=== PATIENT | male | born 1980 | race Caucasian/White ===

== ENCOUNTER 2017-02-03 20:04 | Emergency (ER) | payer OTHER ==
[2017-02-03 21:39] LABS: Hematocrit 44.4 % (35.5-45.6); Hemoglobin 15.1 gm/dl (11.8-15.2); Mean Corpuscular HGB Conc 34 % (32-34); Mean Corpuscular Hemoglobin 34 pg (28-32); Mean Corpuscular Volume 99 fl (84-94); Platelet Count 167 K/mm3 (140-440); Red Blood Count 4.49 M/mm3 (3.65-5.03); Red Cell Distribution Width 13.9 % (13.2-15.2); White Blood Count 11.3 K/mm3 (4.5-11.0)
[2017-02-03 21:57] LABS: Alanine Aminotransferase 48 units/L (7-56); Albumin 5.2 g/dL (3.9-5); Albumin/Globulin Ratio 1.7 %; Alkaline Phosphatase 62 units/L (35-129); Anion Gap 22 mmol/L; BUN/Creatinine Ratio 14; Blood Urea Nitrogen 10 mg/dL (9-20); Calcium 10.1 mg/dL (8.4-10.2); Carbon Dioxide 29 mmol/L (22-30); Chloride 94.7 mmol/L (98-107); Glucose 121 mg/dL (75-100); Lipase 18 units/L (13-60); Potassium 4.6 mmol/L (3.6-5.0); Sodium 141 mmol/L (137-145); Total Protein 8.2 g/dL (6.3-8.2)
[2017-02-03 22:50] LABS: Basophils % (Manual) 0 % (0.0-1.8); Blastocytes % (Manual) 0 %; Diff Status Complete; Eosinophils % (Manual) 0 % (0.0-4.3); Platelet Estimate Consistent w Auto; RBC Morphology Normal; Total Cells Counted Percent 0
[2017-02-04] MEDS ORDERED: MOTRIN PO ONE (08:52)
[2017-02-04] MEDS ORDERED: ZOFRAN ODT PO ONE (08:53)
[2017-02-04] MEDS ORDERED: ZOFRAN IV ONE (09:25)
[2017-02-04] MEDS ORDERED: MORPHINE IV ONE (09:25)
[2017-02-04] MEDS ORDERED: NACL 0.9% 1000 ML 1,000 ML IV ONE (09:25)
--- NOTE | 2017-02-04 09:31 | Emergency Department Report ---
HPI - General Chief Complaint: Nausea/Vomiting/Diarrhea Time Seen by Provider: 02/04/17 09:19 - [facility] HPI: [place] 24 The patient is a 36-year-old male presenting with a chief complaint of abdominal pain. Patient states yesterday morning he developed bilateral lower abdominal pain is described as constant and sharp in nature. Patient is to nausea and vomiting. Patient denies diarrhea. Patient denies fever, dysuria or hematuria. Patient states his last bowel movement occurred yesterday. The patient currently gets his pain score of 8/10 Location: Lower abdomen Duration: Constant since yesterday morning Quality: Sharp Severity:8/10 Modifying factors: [see above] Context: [see above] Mode of transportation: [not driving] ED Past Medical Hx - Past Medical History Previous Medical History?: No - Surgical History Past Surgical History?: No - Family History Family history: no significant - Social History Smoking Status: Never Smoker Substance Use Type: None (denies illicit drug use), Alcohol (occasional) - Medications Home Medications: Home Medications Medication Instructions Recorded Confirmed Last Taken Type Ciprofloxacin HCl [Ciprofloxacin 500 mg PO BID #14 tablet 02/04/17 Unknown Rx TAB] HYDROcodone/APAP 5-325 [[place] 1 - 2 each PO Q6HR PRN #10 tablet 02/04/17 Unknown Rx 5/325] Promethazine [Phenergan TAB] 25 mg PO Q6HR PRN #20 tab 02/04/17 Unknown Rx Promethazine [Phenergan] 25 mg [place] Q6HR PRN #5 supp.rect 02/04/17 Unknown Rx ED Review of Systems ROS: Stated complaint: VOMITING Other details as noted in HPI Constitutional: denies: fever Endocrine: denies: unexplained weight loss Gastrointestinal: abdominal pain, nausea, vomiting. denies: diarrhea Genitourinary: denies: dysuria, hematuria Physical Exam - Physical Exam Vital Signs: Vital Signs 02/03/17 02/03/17 02/04/17 20:38 21:02 04:52 Temperature 98.2 F 99.2 F 99.1 F Pulse Rate 105 H 98 H 97 H Respiratory 18 18 18 Rate Blood Pressure 131/86 157/92 153/95 O2 Sat by Pulse 95 100 98 Oximetry Physical Exam: GENERAL: The patient is well-developed well-nourished male lying on stretcher not appearing to be in acute distress. [] HEENT: Normocephalic. Atraumatic. Extraocular motions are intact. Patient has moist mucous membranes. NECK: Supple. Trachea midline CHEST/LUNGS: Clear to auscultation. There is no respiratory distress noted. HEART/CARDIOVASCULAR: Regular. There is no tachycardia. There is no gallop rub or murmur. ABDOMEN: Abdomen is soft, trace discomfort to palpation bilateral lower quadrants. Patient has normal bowel sounds. There is no abdominal distention. SKIN: There is no rash. There is no edema. There is no diaphoresis. NEURO: The patient is awake, alert, and oriented. The patient is cooperative. The patient has normal speech MUSCULOSKELETAL: There is no CVA tenderness. There is no evidence of acute injury. ED Course Vital Signs 02/03/17 02/03/17 02/04/17 20:38 21:02 04:52 Temperature 98.2 F 99.2 F 99.1 F Pulse Rate 105 H 98 H 97 H Respiratory 18 18 18 Rate Blood Pressure 131/86 157/92 153/95 O2 Sat by Pulse 95 100 98 Oximetry ED Medical Decision Making - Lab Data Result diagrams: 02/03/17 21:25 02/03/17 21:25 Laboratory Tests 02/03/17 02/03/17 21:25 21:25 WBC 11.3 H RBC 4.49 Hgb 15.1 Hct 44.4 MCV 99 H MCH 34 H MCHC 34 RDW 13.9 Plt Count 167 Add Manual Diff Complete Total Counted 100 Seg Neutrophils % [place] Seg Neuts % (Manual) 92.0 H Band Neutrophils % 3.0 Lymphocytes % (Manual) 5.0 L Reactive Lymphs % (Man) 0 Monocytes % (Manual) 0 Eosinophils % (Manual) 0 Basophils % (Manual) 0 Metamyelocytes % 0 Myelocytes % 0 Promyelocytes % 0 Blast Cells % 0 Nucleated RBC % Not Reportable Seg Neutrophils # Man 10.4 H Band Neutrophils # 0.3 Lymphocytes # (Manual) 0.6 L Abs React Lymphs (Man) 0.0 Monocytes # (Manual) 0.0 Eosinophils # (Manual) 0.0 Basophils # (Manual) 0.0 Metamyelocytes # 0.0 Myelocytes # 0.0 Promyelocytes # 0.0 Blast Cells # 0.0 WBC Morphology Not Reportable Hypersegmented Neuts Not Reportable Hyposegmented Neuts Not Reportable Hypogranular Neuts Not Reportable Smudge Cells Not Reportable Toxic Granulation Not Reportable Toxic Vacuolation Not Reportable Dohle Bodies Not Reportable Pelger-Huet Anomaly Not Reportable Toño Rods Not Reportable Platelet Estimate Consistent w auto Clumped Platelets Not Reportable Plt Clumps, EDTA Not Reportable Large Platelets Not Reportable Giant Platelets Not Reportable Platelet Satelliting Not Reportable Plt Morphology Comment Not Reportable RBC Morphology Normal Dimorphic RBCs Not Reportable Polychromasia Not Reportable Hypochromasia Not Reportable Poikilocytosis Not Reportable Anisocytosis Not Reportable Microcytosis Not Reportable Macrocytosis Not Reportable Spherocytes Not Reportable Pappenheimer Bodies Not Reportable Sickle Cells Not Reportable Target Cells Not Reportable Tear Drop Cells Not Reportable Ovalocytes Not Reportable Helmet Cells Not Reportable Leo-Garden Bodies Not Reportable Rudy Rings Not Reportable Sea Cells Not Reportable Bite Cells Not Reportable Crenated Cell Not Reportable Elliptocytes Not Reportable Acanthocytes (Spur) Not Reportable Rouleaux Not Reportable Hemoglobin C Crystals Not Reportable Schistocytes Not Reportable Malaria parasites Not Reportable Gamaliel Bodies Not Reportable Hem Pathologist Commnt No Sodium 141 Potassium 4.6 Chloride 94.7 L Carbon Dioxide 29 Anion Gap 22 BUN 10 Creatinine 0.7 L Estimated GFR > 60 BUN/Creatinine Ratio 14 Glucose 121 H Calcium 10.1 Total Bilirubin 0.80 AST 68 H ALT 48 Alkaline Phosphatase 62 Total Protein 8.2 Albumin 5.2 H Albumin/Globulin Ratio 1.7 Lipase 18 - Radiology Data Radiology results: report reviewed (CT abdomen and pelvis), image reviewed (CT abdomen and pelvis) CT scan of abdomen and pelvis with IV contrast: Findings: Normal lung bases. No pleural pericardial effusion. Small sliding hiatal hernia. Fatty liver. Normal spleen. Normal pancreas. Normal gallbladder and adrenals. Normal kidney parenchyma and bladder. Normal size prostate with central calcification. No free intraperitoneal fluid or air. No evidence of adenopathy. Gaseous colon with moderate volume stool in colon. Fluid-filled loops of small bowel without wall thickening. No evidence of appendicitis or diverticulitis. Impression: Fluid filled loops of small bowel is a nonspecific finding and may represent enteritis. No evidence of bowel obstruction. Transcribed By: PTP Dictated By: CANDACE BARRAZA MD Electronically Authenticated By: CANDACE BARRAZA MD Signed Date/Time: 02/04/17 100 DD/ 1005 TD/TT: 02/04/17 100 - Differential Diagnosis gastritis, small bowel obstruction, peptic ulcer disease Critical care attestation.: If time is entered above; I have spent that time in minutes in the direct care of this critically ill patient, excluding procedure time. ED Disposition Clinical Impression: Gastroenteritis, Nausea & vomiting Disposition: - TO HOME OR SELFCARE Is pt being admited?: No Does the pt Need Aspirin: No Condition: Stable Instructions: Gastroenteritis (ED) Additional Instructions: Return to the emergency department immediately should you develop worsening symptoms, fever, inability to tolerate food or liquid or any other concerns. Prescriptions: Ciprofloxacin HCl [Ciprofloxacin TAB] 500 mg PO BID #14 tablet HYDROcodone/APAP 5-325 [[place] 5/325] 1 - 2 each PO Q6HR PRN #10 tablet PRN Reason: Pain Promethazine [Phenergan TAB] 25 mg PO Q6HR PRN #20 tab PRN Reason: Nausea Promethazine [Phenergan] 25 mg [place] Q6HR PRN #5 supp.rect PRN Reason: Diarrhea Referrals: CHRISTEN YATES MD [Staff Physician] - 3-5 Days (Dr. Yates was a check out cashier. Please follow up with him for further evaluation) Time of Disposition: 10:21
[2017-02-04] MEDS ORDERED: NACL ONE (09:43)
--- NOTE | 2017-02-04 10:15 | Cat Scan Report ---
CT scan of abdomen and pelvis with IV contrast: Findings: Normal lung bases. No pleural pericardial effusion. Small sliding hiatal hernia. Fatty liver. Normal spleen. Normal pancreas. Normal gallbladder and adrenals. Normal kidney parenchyma and bladder. Normal size prostate with central calcification. No free intraperitoneal fluid or air. No evidence of adenopathy. Gaseous colon with moderate volume stool in colon. Fluid-filled loops of small bowel without wall thickening. No evidence of appendicitis or diverticulitis. Impression: Fluid filled loops of small bowel is a nonspecific finding and may represent enteritis. No evidence of bowel obstruction.
[2017-02-04 11:24] VITALS: BP 147/100
== END 2017-02-04 11:22 | disposition home or self-care (01) ==
LOC: ED 20:04
DX: K52.9 Noninfective gastroenteritis and colitis, unspecified (principal)
CPT/HCPCS: 36415; 74177; 80053; 83690; 85007; 85025; 96361; 96374; 96375; 99284; J2270; J2405; J7030; Q9967; Q0162